=== PATIENT | female | born 1995 ===

== ENCOUNTER 2017-04-26 06:38 | Inpatient (IN) ==
[2017-04-26] MEDS: LACTATED RINGERS 1,000 ML IV SCH ×2 (07:02→09:08)
[2017-04-26] MEDS ORDERED: BUTORPHANOL 2 MG/ML VIAL IV PRN (07:11)
[2017-04-26] MEDS ORDERED: ONDANSETRON 4 MG/2 ML VIAL IV PRN (07:11)
[2017-04-26] MEDS ORDERED: PROMETHAZINE 25 MG/1 ML VIAL IM ONE (07:14)
[2017-04-26] MEDS ORDERED: FAMOTIDINE 20 MG/2 ML VIAL IV PRN (07:14)
[2017-04-26] MEDS ORDERED: diphenhydrAMINE 50 MG/1 ML VIAL IV PRN (07:14)
[2017-04-26] MEDS ORDERED: ePHEDrine 50 MG/ML AMP IV PRN (07:14)
[2017-04-26] MEDS ORDERED: CITRIC ACID/SODIUM CITRATE 30 ML UDCUP PO PRN (07:14)
[2017-04-26] MEDS ORDERED: fentaNYL 2 MCG/ROPIV 0.2% EPID 150 ML EPIDURAL SCH (07:30)
[2017-04-26] MEDS ORDERED: OXYTOCIN/LR 20 UNIT/1,000 ML BAG IV SCH (07:30)
[2017-04-26 07:42] LABS: Basophils % 0.2 % (0.0-0.8); Eosinophils # 0.2 10*3/uL (0.0-0.87); Eosinophils % 1.9 % (0.00-10.9); Hematocrit 37.2 VOL% (35.7-47.0); Hemoglobin 13.3 GM/DL (12.0-16.0); Immature Granulocytes % 0.5 %; Immature Granulocytes Absolute 0.04 #; Lymphocytes # 2.5 10*3/uL (1.4-4.0); Lymphocytes % 29.3 % (21.3-54.2); Mean Corpuscular HGB Conc 35.8 GM/DL (32-36); Mean Corpuscular Hemoglobin 31 PG (27-34); Mean Corpuscular Volume 87.5 FL (87-102); Mean Platelet Volume 9.2 FL (9.6-12.0); Monocytes # 0.6 10*3/uL (0.11-0.8); Monocytes % 7.3 % (1.7-12.7); Neutrophils # 5.2 10*3/uL (1.4-7.4); Neutrophils % 60.8 % (38.7-73.9); Platelet Count 355 T/CUMM (130-400); Red Blood Count 4.25 MC/CUMM (3.8-5.5); Red Cell Distribution Width 12.1 % (9.3-17.3); White Blood Count 8.5 T/CUMM (4-12)
[2017-04-26] MEDS ORDERED: LIDOCAINE 1% 50 ML VIAL ONE (08:12)
[2017-04-26] MEDS ORDERED: miSOPROStol 200 MCG TABLET ONE (08:12)
[2017-04-26 08:18] LABS: Albumin 2.5 G/DL (3.4-5.0); Bilirubin,Total 0.8 MG/DL (0.2-1.0); Calcium 8.5 MG/DL (8.5-10.1); Osmolality,Calculated 272.5 MOS/KG (273-304); Potassium 3.3 MMOL/L (3.5-5.1); Total Protein 6.4 G/DL (6.4-8.3)
[2017-04-26] MEDS ORDERED: ACETAMINOPHEN/CODEINE 300-30 MG TABLET PO PRN (11:37)
[2017-04-26 11:46] LABS: Cord Venous Blood HCO3 24.5 MMOL/L; Cord Venous Blood PCO2 45.2 MMHG; Cord Venous Blood PO2 30.8
[2017-04-26 11:48] LABS: Apearance,Urine CLEAR (Clear); Bilirubin,Urine Negative (Negative); Blood, Urine Moderate mg/dL (Negative); Glucose,Urine (UA) Negative (Negative); Ketones,Urine Negative (Negative); Nitrite,Urine Negative (Negative); Protein,Urine Negative; RBC,Urine 2 /HPF (0-4); Squamous Epithelial Cell,Urine Occasional /HPF (0-10); Urine Color Yellow (Yellow); Urine Specific Gravity 1.004 (1.001-1.035); Urine Urobilinogen < 2.0 EU/DL (0.2-1.0); WBC,Urine <1 /HPF (0-6)
[2017-04-26] MEDS ORDERED: WITCH HAZEL PADS 100/JAR TOP PRN (14:18)
[2017-04-26] MEDS ORDERED: LANOLIN 50% CREAM 0.3 OZ TUBE TOP PRN (14:18)
[2017-04-26] MEDS ORDERED: HYDROCORTISONE 2.5% RECTAL CREAM 30 GM TUBE TOP PRN (14:18)
[2017-04-26] MEDS ORDERED: DIPH/TET/ACEL PERT BOOSTER VACCINE 0.5 ML VIAL IM ONE (14:18)
[2017-04-26] MEDS ORDERED: RHO(D) IMMUNE GLOBULIN 300 MCG SYRINGE IM ONE (14:18)
[2017-04-26] MEDS ORDERED: ACETAMINOPHEN 325 MG TABLET PO PRN (14:18)
[2017-04-26] MEDS ORDERED: BENZOCAINE 20%/MENTHOL 0.5% SPRAY 56 GM CAN TOP PRN (14:18)
[2017-04-26] MEDS ORDERED: BISACODYL 10 MG SUPP RECTAL PRN (14:18)
[2017-04-26] MEDS ORDERED: oxyCODONE/ACETAMINOPHEN 5-325 MG TABLET PO PRN (14:18)
[2017-04-26] MEDS ORDERED: MEASLES/MUMPS/RUBELLA VACCINE 0.5 ML VIAL SUBCUT ONE (14:18)
[2017-04-26] MEDS: oxyCODONE/ACETAMINOPHEN 5-325 MG TABLET PO PRN (20:54)
[2017-04-26] MEDS: DOCUSATE SODIUM 100 MG CAPSULE PO SCH (20:54)
[2017-04-26] MEDS: IBUPROFEN 800 MG TABLET PO PRN (20:55)
[2017-04-27 07:05] LABS: Basophils % 0.3 % (0.0-0.8); Eosinophils # 0.2 10*3/uL (0.0-0.87); Eosinophils % 1.4 % (0.00-10.9); Hematocrit 33.8 VOL% (35.7-47.0); Hemoglobin 12.3 GM/DL (12.0-16.0); Immature Granulocytes % 0.5 %; Immature Granulocytes Absolute 0.05 #; Lymphocytes # 2.6 10*3/uL (1.4-4.0); Lymphocytes % 23.8 % (21.3-54.2); Mean Corpuscular HGB Conc 36.4 GM/DL (32-36); Mean Corpuscular Hemoglobin 32 PG (27-34); Mean Corpuscular Volume 86.4 FL (87-102); Mean Platelet Volume 8.8 FL (9.6-12.0); Monocytes # 0.5 10*3/uL (0.11-0.8); Monocytes % 4.9 % (1.7-12.7); Neutrophils # 7.5 10*3/uL (1.4-7.4); Neutrophils % 69.1 % (38.7-73.9); Platelet Count 283 T/CUMM (130-400); Red Blood Count 3.91 MC/CUMM (3.8-5.5); White Blood Count 10.8 T/CUMM (4-12)
[2017-04-27] MEDS: DOCUSATE SODIUM 100 MG CAPSULE PO SCH ×2 (09:26→21:32)
[2017-04-27] MEDS: IBUPROFEN 800 MG TABLET PO PRN ×2 (11:20→16:52)
[2017-04-27] MEDS: oxyCODONE/ACETAMINOPHEN 5-325 MG TABLET PO PRN ×2 (11:22→16:53)
[2017-04-28 07:37] VITALS: BP 105/56
[2017-04-28] MEDS: DOCUSATE SODIUM 100 MG CAPSULE PO SCH (09:13)
== END 2017-04-28 12:45 | disposition home or self-care (01) | DRG 560 ==
LOC: N.LDOUT 06:38 → N.LD 06:41 → N.OB 14:15
PROVIDERS: ADMIT Obstetrics & Gynecology; ATTEND Obstetrics & Gynecology

== ENCOUNTER 2019-03-17 10:35 | Inpatient (IN) ==
[2019-03-17] MEDS ORDERED: OXYTOCIN/LR 20 UNIT/1,000 ML BAG IV ONE ×2 (11:05→16:27)
[2019-03-17] MEDS ORDERED: PROMETHAZINE 25 MG/1 ML VIAL IM ONE (11:09)
[2019-03-17] MEDS ORDERED: diphenhydrAMINE 50 MG/1 ML VIAL IV PRN ×2 (11:09)
[2019-03-17] MEDS ORDERED: CITRIC ACID/SODIUM CITRATE 30 ML UDCUP PO ONE (11:09)
[2019-03-17] MEDS ORDERED: ONDANSETRON 4 MG/2 ML VIAL IV ONE (11:09)
[2019-03-17] MEDS ORDERED: hydrOXYzine HCL 25 MG/1 ML VIAL IM PRN (11:09)
[2019-03-17] MEDS ORDERED: NALOXONE 0.4 MG/ML VIAL IV PRN (11:09)
[2019-03-17] MEDS ORDERED: FAMOTIDINE 20 MG/2 ML VIAL IV ONE (11:09)
[2019-03-17] MEDS ORDERED: ePHEDrine 50 MG/ML AMP IV PRN (11:09)
[2019-03-17] MEDS ORDERED: METHYLERGONOVINE 0.2 MG/1 ML AMP ONE (11:21)
[2019-03-17] MEDS ORDERED: LIDOCAINE 1% 50 ML VIAL ONE (11:21)
[2019-03-17] MEDS ORDERED: miSOPROStoL 200 MCG TABLET ONE (11:21)
[2019-03-17] MEDS ORDERED: CARBOPROST TROMETHAMINE 250 MCG/ML AMP IM ONE (11:21)
[2019-03-17] MEDS ORDERED: BUTORPHANOL 2 MG/ML VIAL ONE (11:21)
[2019-03-17] MEDS ORDERED: LACTATED RINGERS 250 ML IV ONE (11:22)
[2019-03-17] MEDS ORDERED: LACTATED RINGERS 500 ML IV PRN (11:22)
[2019-03-17] MEDS ORDERED: BUTORPHANOL 2 MG/ML VIAL IV PRN (11:22)
[2019-03-17] MEDS ORDERED: ONDANSETRON 4 MG/2 ML VIAL IV PRN (11:22)
[2019-03-17] MEDS ORDERED: OXYTOCIN 10 UNIT/ML VIAL ONE (11:28)
[2019-03-17] MEDS ORDERED: fentaNYL 2 MCG/ROPIV 0.2% EPID 100 ML EPIDURAL SCH (11:30)
[2019-03-17] MEDS ORDERED: LACTATED RINGERS 1,000 ML IV SCH (11:30)
[2019-03-17 12:07] LABS: Basophils % 0.3 % (0.0-0.8); Eosinophils % 0.3 % (0.00-10.9); Hematocrit 37.6 VOL% (35.7-47.0); Hemoglobin 12.7 GM/DL (12.0-16.0); Immature Granulocytes % 0.6 %; Immature Granulocytes Absolute 0.07 #; Lymphocytes % 17.3 % (21.3-54.2); Mean Corpuscular HGB Conc 33.8 GM/DL (32-36); Mean Corpuscular Volume 84.3 FL (87-102); Mean Platelet Volume 8.6 FL (9.6-12.0); Neutrophils % 75.5 % (38.7-73.9); Platelet Count 379 T/CUMM (130-400); Red Blood Count 4.46 MC/CUMM (3.8-5.5); Red Cell Distribution Width 12.8 % (9.3-17.3); White Blood Count 11.7 T/CUMM (4-12)
[2019-03-17 12:32] LABS: Albumin 2.4 G/DL (3.4-5.0); Bilirubin,Total 0.4 MG/DL (0.2-1.0); Calcium 8.1 MG/DL (8.5-10.1); Osmolality,Calculated 276.3 MOS/KG (273-304); Total Protein 6.2 G/DL (6.4-8.3)
[2019-03-17] MEDS: KETOROLAC 30 MG/1 ML VIAL IV SCH ×2 (13:44→20:30)
[2019-03-17] MEDS ORDERED: WITCH HAZEL PADS 100/JAR TOP PRN (14:08)
[2019-03-17] MEDS ORDERED: LANOLIN 50% CREAM 0.3 OZ TUBE TOP PRN (14:08)
[2019-03-17] MEDS ORDERED: DIPH/TET/ACEL PERT BOOSTER VACCINE 0.5 ML VIAL IM ONE (14:08)
[2019-03-17] MEDS ORDERED: MEASLES/MUMPS/RUBELLA VACCINE 0.5 ML VIAL SUBCUT ONE (14:08)
[2019-03-17] MEDS ORDERED: BENZOCAINE 20%/MENTHOL 0.5% SPRAY 56 GM CAN TOP PRN (14:08)
[2019-03-17] MEDS ORDERED: BISACODYL 10 MG SUPP RECTAL PRN (14:08)
[2019-03-17] MEDS ORDERED: RHO(D) IMMUNE GLOBULIN 300 MCG SYRINGE IM ONE (14:08)
[2019-03-17] MEDS ORDERED: HYDROCORTISONE 2.5% RECTAL CREAM 30 GM TUBE TOP PRN (14:08)
[2019-03-17 17:38] LABS: Hepatitis B Surface Ag Quant 0.26 Index; Hepatitis B Surface Ag Result Negative (Negative)
[2019-03-17 18:21] LABS: HIV Antigen/Antibody Result Nonreactive (Nonreactive)
[2019-03-17] MEDS: ACETAMINOPHEN 325 MG TABLET PO SCH ×2 (18:21→20:30)
[2019-03-17] MEDS: DOCUSATE SODIUM 100 MG CAPSULE PO SCH (20:31)
[2019-03-18] MEDS: KETOROLAC 30 MG/1 ML VIAL IV SCH ×2 (02:06→09:56)
[2019-03-18] MEDS: ACETAMINOPHEN 325 MG TABLET PO SCH ×4 (02:07→21:57)
[2019-03-18 03:13] LABS: Basophils % 0.3 % (0.0-0.8); Eosinophils # 0.1 10*3/uL (0.0-0.87); Eosinophils % 0.8 % (0.00-10.9); Hematocrit 31.2 VOL% (35.7-47.0); Hemoglobin 10.5 GM/DL (12.0-16.0); Immature Granulocytes % 0.4 %; Immature Granulocytes Absolute 0.05 #; Lymphocytes # 2.9 10*3/uL (1.4-4.0); Lymphocytes % 24.3 % (21.3-54.2); Mean Corpuscular HGB Conc 33.7 GM/DL (32-36); Mean Corpuscular Volume 82.8 FL (87-102); Mean Platelet Volume 8.9 FL (9.6-12.0); Monocytes % 5.8 % (1.7-12.7); Neutrophils % 68.4 % (38.7-73.9); Platelet Count 343 T/CUMM (130-400); Red Blood Count 3.77 MC/CUMM (3.8-5.5); Red Cell Distribution Width 12.7 % (9.3-17.3); White Blood Count 11.9 T/CUMM (4-12)
[2019-03-18] MEDS: DOCUSATE SODIUM 100 MG CAPSULE PO SCH ×2 (09:45→20:42)
[2019-03-18] MEDS: IBUPROFEN 800 MG TABLET PO SCH ×2 (18:52→20:42)
[2019-03-19] MEDS: IBUPROFEN 800 MG TABLET PO SCH ×2 (04:13→15:59)
[2019-03-19] MEDS: ACETAMINOPHEN 325 MG TABLET PO SCH ×2 (05:11→15:58)
[2019-03-19 08:28] VITALS: BP 114/62
[2019-03-19] MEDS ORDERED: INFLUENZA VIRUS VACCINE 0.5 ML SYRINGE IM ONE (15:04)
[2019-03-19] MEDS: DOCUSATE SODIUM 100 MG CAPSULE PO SCH (15:58)
== END 2019-03-19 15:35 | disposition home or self-care (01) | DRG 560 ==
LOC: N.LDOUT 10:35 → N.LD 10:36 → N.OB 14:08
PROVIDERS: ADMIT Obstetrics & Gynecology; ATTEND Obstetrics & Gynecology